=== PATIENT | male | born 1980 | race Caucasian/White ===

== ENCOUNTER 2019-09-09 15:57 | Inpatient (IN) | payer MEDICAID ==
[~2019-09-09] VITALS: Ht 185.4 cm; Wt 71.7 kg
[2019-09-09] MEDS ORDERED: SODIUM CHLORIDE 0.9% 1,000 ML IV ONE ×2 (16:54→17:59)
[2019-09-09] MEDS ORDERED: PANTOPRAZOLE SODIUM 40 MG/VIAL IV STA (16:54)
[2019-09-09] MEDS ORDERED: MORPHINE SULFATE 2 MG/ML CPJ (NOT FOR IM USE) IV ONE (17:00)
[2019-09-09 17:28] LABS: EOSINOPHILS % 1.6 % (0.0-5.0); HEMATOCRIT. 40.8 % (42.0-52.0); HEMOGLOBIN. 14.3 g/dL (14.0-18.0); LYMPHOCYTES % 14.3 % (20.0-50.0); MEAN CORPUSCULAR HEMOGLOBIN 32.8 pg (28.0-32.0); MEAN CORPUSCULAR VOLUME 93.4 fL (80.0-94.0); MONOCYTES % 8.1 % (2.0-8.0); PLATELET 221 x1000/uL (130-400); RED BLOOD CELL COUNT 4.37 mill/uL (4.7-6.1); RED CELL DISTRIBUTION WIDTH 14.3 % (11.6-14.6)
[2019-09-09 17:34] LABS: CHLORIDE 98 mEq/L (98-107)
[2019-09-09 17:38] LABS: ETHANOL BLOOD < 10 mg/dL
[2019-09-09] MEDS ORDERED: ONDANSETRON HCL 4MG/2ML INJ IV ONE (18:15)
[2019-09-09 19:33] LABS: CLARITY URINE CLEAR (CLEAR); COLOR URINE YELLOW (YELLOW); KETONES URINE NEGATIVE (NEGATIVE); LEUKOCYTE ESTERASE URINE NEGATIVE (NEGATIVE); NITRITE URINE NEGATIVE (NEGATIVE); OCCULT BLOOD URINE NEGATIVE (NEGATIVE); PROTEIN URINE NEGATIVE (NEGATIVE); SPECIFIC GRAVITY URINE 1.008 (1.005-1.030)
[2019-09-09 20:15] LABS: *AMPHETAMINES SCREEN URINE NEGATIVE (NEGATIVE); *BARBITURATES SCREEN URINE NEGATIVE (NEGATIVE); *BENZODIAZEPINES SCREEN URINE NEGATIVE (NEGATIVE); *COCAINE SCREEN URINE NEGATIVE (NEGATIVE)
[2019-09-09] MEDS ORDERED: PIPERACILLIN/TAZ 3.375G PREMIX 50 ML IV SCH ×2 (20:15→21:00)
[2019-09-09] MEDS ORDERED: ONDANSETRON HCL 4MG/2ML INJ IV PRN (20:15)
[2019-09-09] MEDS ORDERED: CLONIDINE 0.1MG TABLET PO PRN (20:15)
[2019-09-09] MEDS ORDERED: ACETAMINOPHEN 325MG TABLET PO PRN (20:15)
[2019-09-09] MEDS ORDERED: DOCUSATE SODIUM 100MG CAPSULE PO PRN (20:15)
[2019-09-09] MEDS ORDERED: MAGNESIUM/ALUMINUM HYDROXIDE/SIMETHICONE 30ML UDC PO PRN (20:15)
[2019-09-09] MEDS ORDERED: IPRATROPIUM/ALBUTEROL 0.5-3(2.5)MG/3ML NEB HHN PRN (20:15)
[2019-09-09] MEDS ORDERED: DIPHENHYDRAMINE 50MG/ML VIAL IV PRN (20:15)
[2019-09-09] MEDS ORDERED: MORPHINE SULFATE 2 MG/ML CPJ (NOT FOR IM USE) IV PRN (20:15)
[2019-09-09] MEDS ORDERED: LORAZEPAM 2MG/ML CPJ IV PRN (20:15)
[2019-09-09] MEDS ORDERED: GUAIFENESIN 200MG/10ML SUGAR FREE UDC PO PRN (20:15)
[2019-09-09] MEDS ORDERED: HYDRALAZINE 20MG/ML VIAL IV PRN (20:15)
[2019-09-09] MEDS ORDERED: HYDROCODONE/ACETAMINOPHEN 10/325MG TABLET PO PRN (20:15)
[2019-09-09 20:16] LABS: CANNABINOID URINE SCREEN NEGATIVE (NEGATIVE); METHADONE URINE SCREEN NEGATIVE (NEGATIVE); OPIATES URINE SCREEN PRESUMTIVE POSITIVE (NEGATIVE); PHENCYCLIDINE URINE SCREEN NEGATIVE (NEGATIVE)
[2019-09-09] MEDS ORDERED: DEXT 5%/0.45% NACL 1000ML 1,000 ML IV SCH (20:30)
[2019-09-09] MEDS ORDERED: ENOXAPARIN 40MG/0.4ML SYR SUBCUT SCH (21:00)
[2019-09-09] MEDS: SODIUM CHLORIDE 0.9% INJ 3ML FLUSH IVF SCH (22:50)
[2019-09-09] MEDS ORDERED: IOHEXOL-300 100 ML BOTTLE ONE (23:04)
[2019-09-10] VITALS: BP 134/90
[2019-09-10] MEDS ORDERED: HYDRALAZINE 10 MG in SODIUM CHLORIDE 0.9% 49.5 ML IV PRN (00:30)
[2019-09-10 01:21] VITALS: BP 134/90
[2019-09-10 04:00] VITALS: BP 136/87
[2019-09-10] MEDS ORDERED: PIPERACILLIN/TAZOBACTAM 3.375 G in DEXT 5% WATER 100 ML IV SCH (06:00)
[2019-09-10] MEDS: SODIUM CHLORIDE 0.9% INJ 3ML FLUSH IVF SCH (06:13)
[2019-09-10 06:51] LABS: BASOPHILS % 0.8 % (0.0-2.0); EOSINOPHILS % 2.6 % (0.0-5.0); HEMATOCRIT. 38.1 % (42.0-52.0); HEMOGLOBIN. 13.3 g/dL (14.0-18.0); MEAN CORPUSCULAR HEMOGLOBIN 32.7 pg (28.0-32.0); MEAN CORPUSCULAR VOLUME 93.4 fL (80.0-94.0); MEAN PLATELET VOLUME 9.9 fl (7.4-10.4); MONOCYTES % 11.9 % (2.0-8.0); NEUTROPHILS % 68.7 % (40.0-76.0); PLATELET 205 x1000/uL (130-400); RED BLOOD CELL COUNT 4.08 mill/uL (4.7-6.1); RED CELL DISTRIBUTION WIDTH 14.1 % (11.6-14.6)
[2019-09-10 07:50] LABS: CHLORIDE 101 mEq/L (98-107)
[2019-09-10 08:00] VITALS: BP 138/98
[2019-09-10 13:00] LABS: HEPATITIS B SURFACE ANTIGEN NEGATIVE
[2019-09-10 13:26] LABS: HEPATITIS A AB IGM NEGATIVE (NEGATIVE)
[2019-09-10 16:00] VITALS: BP 140/95
[2019-09-10 16:23] VITALS: BP 140/95
== END 2019-09-10 16:50 | disposition home or self-care (01) | DRG 282 ==
LOC: ER 15:57 → 6EST 19:45 → EDBEDREQSVC 20:04 → EDBEDREQTM 20:04 → EDBEDREQ 20:04 → ENRESERV 21:30
PROVIDERS: ADMIT Internal Medicine; ATTEND Internal Medicine
DX: K85.90 Acute pancreatitis without necrosis or infection, unspecified (principal); R16.0 Hepatomegaly, not elsewhere classified; E87.1 Hypo-osmolality and hyponatremia; E87.6 Hypokalemia; E86.0 Dehydration; F10.10 Alcohol abuse, uncomplicated; R74.0 Nonspecific elevation of levels of transaminase and lactic acid dehydrogenase [LDH]; Z71.41 Alcohol abuse counseling and surveillance of alcoholic
CPT/HCPCS: 36415; 71045; 74177; 76700; 80053; 80305; 80320; 81003; 85025; 86705; 86709; 86803; 87340; 99285; J0360; J2270; J2405; J2543; J7030; J7060; Q9967; G0480

== ENCOUNTER 2024-09-19 08:17 | Emergency (ER) | payer MEDICAID ==
[~2024-09-19] VITALS: Ht 170.2 cm; Wt 68.0 kg
[2024-09-19 08:30] VITALS: O2SAT 100
[2024-09-19] MEDS: IBUPROFEN 600MG TABLET PO ONE (09:30)
[2024-09-19] MEDS ORDERED: IBUP-2029 MT (10:32)
[2024-09-19 10:45] VITALS: BP 140/91; PULSE 73; RESP 16; TEMP 36.6; O2SAT 97
== END 2024-09-19 10:58 | disposition home or self-care (01) ==
LOC: ER 08:17
DX: S52.592A Other fractures of lower end of left radius, initial encounter for closed fracture (principal); W18.30XA Fall on same level, unspecified, initial encounter; Y93.89 Activity, other specified; Y92.89 Other specified places as the place of occurrence of the external cause; Y99.8 Other external cause status
CPT/HCPCS: 99284; 73200; 73110; 29125; A6449; A4565